=== PATIENT | male | born 1945 | race African-American/Black ===

== ENCOUNTER 2016-12-11 12:50 | Emergency (ER) | payer OTHER ==
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
== END 2016-12-11 13:40 | disposition home or self-care (01) ==
LOC: CFTX 12:50
DX: S16.1XXA Strain of muscle, fascia and tendon at neck level, initial encounter (principal); I10 Essential (primary) hypertension; F17.200 Nicotine dependence, unspecified, uncomplicated; V43.52XA Car driver injured in collision with other type car in traffic accident, initial encounter
CPT/HCPCS: 72040; 99283